=== PATIENT | male | born 2000 | race Caucasian/White ===

== ENCOUNTER 2022-06-20 07:04 | Outpatient (CLI) | payer OTHER, SELFPAY ==
--- NOTE | ~2022-06-20 | MR_ITS ---
MRI of the brain Clinical History: Head injury Technique: Axial and sagittal T1-weighted images were acquired. These were followed by axial T2-weigh kat, diffusion weighted, gradient, and FLAIR images. Findings: No signal abnormality seen in the brain parenchyma. No acute infarct, intracranial hemorrha ge, or mass lesion. Ventricles and subarachnoid spaces are unremarkable. Orbits are unremarkable. Paranasal sinuses and m astoid air cells are clear. Major intracranial flow voids are intact. Sagittal midline structures are intact. IMPRESSION: Unremarkable exam. Reviewed, dictated and finalized at location M. IMPRESSION: Unremarkable exam.
== END 2022-06-20 07:05 | disposition home or self-care (01) ==
PROVIDERS: PCP Family Medicine; Visit Provider Nurse Practitioner Family
DX: S06.0XAA Concussion with loss of consciousness status unknown, initial encounter (principal); R51.9 Headache, unspecified; R68.89 Other general symptoms and signs; X58.XXXA Exposure to other specified factors, initial encounter
CPT/HCPCS: 70551